=== PATIENT | female | born 1945 | race Caucasian/White ===

== ENCOUNTER 2016-06-14 10:00 | Inpatient (IN) | payer MEDICARE ==
[2016-06-14] VITALS (21 sets, daily range): BP systolic 127–160; BP diastolic 68–101
[~2016-06-14] VITALS: Ht 157.5 cm; Wt 75.9 kg
[~2016-06-14 10:00] MED LIST: ASPIRIN 81MG TA81 MG PO; HCTZ/LISINOPRIL1 TA3 PO; VENLAFAXINE HYD75 MG PO; VITAMIN B-12100 MCG PO; VITAMIN D1000 IU PO
[2016-06-14 10:16] LABS: HEMOGLOBIN 10.3 g/dL (12.2-16.2); LYMPH # 2.3 K/mm3 (0.7-4.5)
[2016-06-14 10:23] LABS: BUN 20 mg/dL (7-18); GFR (ESTIMATED) 62 ML/MIN (59-)
--- NOTE | 2016-06-14 10:57 | Emergency Room Report ---
History of Present Illness Time Seen by [id number] Presenting Problem in Triage Pt arrived: Presenting Problem: Onset of symptoms date/time:/ or onset unknown for: Treatment Prior to Arrival: [facility] Provided by: Sepsis Risk Assessment: Temp: B/P: MAP: Pulse: Resp: Recent fever? Clinical Suspician of Infection? Mental Status: Sepsis Risk: Have you (or family members/close friends) recently traveled outside the [place]? If Yes, where/when: Have you had exposure to infectious disease within the past month? TB? Other? Specify: 70 years old white female status post hysterectomy 7 years ago secondary to uterine cancer. She has intermittent episodes of vaginal bleeding, last episode was a year ago. The patient came with her was having a congestive heart failure exacerbation was placed on BiPAP and she started gushing out of her vagina. She states that he has been going on for some time as she is changing 1 pad a day. There have been similar episodes in the last one was a year ago. Source patient, RN notes reviewed, family Exam Limitations clinical condition ALLERGIES Coded Allergies: No Known Allergies (06/14/16) Home Medications Reported Medications ASPIRIN (Aspirin) 81 MG PO DAILY VENLAFAXINE HCL (Venlafaxine Hydrochloride) 75 MG PO DAILY LISINOPRIL/HYDROCHLOROTHIAZIDE (Lisinopril-Hctz 20-12.5 MG Tab) 1 TAB PO DAILY CHOLECALCIFEROL (VITAMIN D3) (Vitamin D3) 4,000 IUNITS PO DAILY CYANOCOBALAMIN (VITAMIN B-12) (Vitamin B-12) 100 MCG PO DAILY History Medical History General Angina: No MO: No Hypertension? Yes Hyperlipidemia? No CHF? No COPD? No Asthma? No Hernia? No CVA? No Seizures? No Diabetes? No UTI? No Stones? No GB Disease: No Hepatitis? No Cataracts? No Glaucoma? No MRSA? No TB? No Cancer? Yes Site: endometrial carcinoma Immunization Hx DT/Tetanus > 10 YRS Flu 2YRSorMore Pneumonia NEVER Surgical Hx Previous Surgery?Y TUBAL LIGATION Family History Family Hx Diabetes No CAD Yes Hypertension Yes Hyperlipidemia No Cancer No TB No Social History Alcohol Alcohol: No Review of Systems All Other Systems Reviewed and Negative Constitutional no symptoms reported Eyes no symptoms reported ENT no symptoms reported. Respiratory no symptoms reported Cardiovascular no symptoms reported Gastrointestinal no symptoms reported Genitourinary see HPI. Musculoskeletal no symptoms reported Skin no symptoms reported Psychiatric/Neurological anxiety Physical Exam Vital Signs Vital Signs Date Time Temp Pulse Resp B/P Pulse O2 O2 Flow FiO2 Ox Delivery Rate 06/14 1000 98.0 81 18 157/90 97 - WBC >12,000 or <4,000 or 10% bands? 2 or more SIRS Criteria Met? B/P: MAP: Creatinine >2.0? UA output<0.5ml/kg/hr for 2 hrs? Platelet count >100,000? Lactate >2.0mmol/1? INR >1.2 or PTT > than 60 sec? Evidence of Organ Dysfunction? Provider documented clinical suspician of infection? Sepsis Criteria Count: Sepsis Risk: General Appearance normal appearance, WD/WN Eye Exam - bilateral eye normal exam, bilateral eye PERRL, bilateral eye EOMI Ear, Nose, Throat hearing grossly normal, normal ENT inspection Neck normal inspection, non-tender, supple, full range of motion Respiratory Status Yes: trachea midline, chest symmetrical, non tender chest. No: respiratory distress. Lung Sounds bilateral: normal breath sounds, lungs clear. Cardiovascular normal exam, regular rate/rhythm, no peripheral edema, no gallop, no JVD, no murmur, no rub, normal peripheral pulses Peripheral Pulses Pulses normal Yes Gastrointestinal normal bowel sounds, normal exam, non tender, soft, no organomegaly Extremities non-tender, normal range of motion, normal inspection Neurologic alert, ordnance handler II-XII nml as tested, normal exam, oriented x 3 Skin intact, normal color, warm/dry Medical Decision Making LABS/Meds/Orders Pt receiving controlled substance in ED? No Results/Orders Laboratory Tests 06/14/16 1054: Alcohols 2 06/14/16 1000: Sodium 137, Potassium 3.9, Chloride 101, Carbon Dioxide 24, BUN 20 H, Creatinine 0.9, Estimated GFR (MDRD) 62, Glucose 148 H, Calcium 9.1, Total Bilirubin 0.4, AST 16, ALT 16, Alkaline Phosphatase 83, Total Protein 8.2, Albumin 3.7, Globulin 4.5 H, Albumin/Globulin Ratio 0.8 L, WBC 9.1, RBC 4.17 L, Hgb 10.3 L, Hct 34.1 L, MCV 81.9 L, RDW 14.7, Plt Count 302, MPV 5.6 L, Gran % 67.6, Gran # 6.1, Lymphocytes % 25.0, Monocytes % 5.8, Eosinophils % 1.3, Basophils % 0.4, Lymphocytes # 2.3, Monocytes # 0.5, Eosinophils # 0.1, Basophils # 0.0, PUBS MCHC 30.3 L, MCH 24.8 L Current Medication Orders Sig/Kayla Start time Last Medication Dose Route Stop Time Status Admin Haloperidol Lactate 0 .STK-MED ONE 06/14 1147 DC .ROUTE Lorazepam 1 MG ONCE ONE 06/14 1145 DC IV 06/14 1146 Lorazepam 0 .STK-MED ONE 06/14 1134 DC .ROUTE Sodium Chloride 1,000 ML .STK-MED ONE 06/14 1053 DC IV Sodium Chloride 10 ML PRN PRN 06/14 1015 AC IV 06/15 1001 Sodium Chloride 1,000 ML .STK-MED ONE 06/14 1004 DC IV Orders Procedure Date/time Status DIET-NOTHING BY MOUTH 06/14 L Active TYPE AND SCREEN 06/[address] HEAD REQ 06/14 1049 Active DRUG ABUSE SCREEN (10) 06/14 1049 Active AMMONIA 06/14 1049 Active ALCOHOL 06/14 1049 Complete IV SALINE LOCK 06/14 1001 Active CBC WITH AUTO DIFF 06/14 1001 Complete CHEM 12 PROFILE 06/14 1001 Complete Departure Departure Time of Disposition 1053 Disposition Still a Patient Clinical Impression Primary Impression: Vaginal bleeding Secondary Impressions: Psychosis Condition STABLE Referrals Reji COREAS,Daren (Family) Additional Instructions I placed the patient in the lithotomy position for examination, she became is very agitated, could not tolerate touching her, became more anxious exam was stopped. Patient was alert and oriented to place and person and date. She was needing assistance to realize what her daughters are. I order a stat head CT scan ammonia level and a urine drug screen. In the meanwhile her was doing much better on BiPAP. I called Dr. Whelan WHO agreed that the patient is not medically cleared and she did CONSULT.. I CALLED DR ARGUELLES WHO AGREED TO SEE HER INPATIENT CONSULT. Discharge Counseling Counseled pt/family regarding diagnosis, test results, medications/RX ED Critical Care Critical Care Yes Time spent 30-74 min Vital system(s) involved: PSYCHOSIS AND VAGINAL BLEEDING I was present at bedside for Coordinating pt's care, Interpreting EKGs/Strips , During my initial exam, Reviewing lab results, Reviewing old records, Discussing pt condition at 1202
--- NOTE | 2016-06-14 11:31 | RADIOLOGY REPORT PS360 ---
CT HEAD W/O CONTRAST HISTORY: CONFUSION ORDERING PHYSICIAN: Mary Grace Easley MD PATIENT AGE: 70 years COMPARISON: None 06/23/2008 TECHNIQUE: Axial images obtained without contrast. Brain and bone windows reviewed. FINDINGS: There is performed by helical technique with somewhat limited resolution compared to the normal technique. No midline shift, mass effect, intracranial hemorrhage, or hydrocephalus is evident. 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 Nonspecific decreased attenuation is present in the periventricular region consistent with ischemic gliotic change from microvascular disease. No midline shift, mass effect, intracranial hemorrhage, or hydrocephalus is evident. There is mucosal thickening of left maxillary sinus. No acute calvarial abnormalities are evident. IMPRESSION: 1. No acute intracranial pathology. 2. Atrophy with chronic ischemic changes.
--- NOTE | 2016-06-14 13:57 | HISTORY AND PHYSICAL REPORT ---
History and Physical ([facility]) Date of admission: 06/14/16 Chief complaint: AMS, bleeding from vagina History: History of Present Illness: Ms. Guthrie is a 70yo female who was just recently at [facility] yesterday for a wellness exam. She was doing well until today when her was brought to the ER d/t CP. He had to be placed on BIPAP. The patient's family states she got very nervous and began having bleeding from her vagina while they were in the ER and then felt like she was going to pass out. Her family states she had some AMS and was unsure who they were. She does have a hx of endometrial cancer and has had a hysterectomy. She was given haldol and lorazepam to try to calm her down. The ER physician tried to do a pelvic exam, but the patient was too upset. Her HGB was 10.3 initially. She was admitted for observation, a repeat H & H, and a TWISTER OPERATOR consult. She did have a CT of her head that was normal. Past Medical History: Medical History: CAD? No Angina: No [place]: No Hypertension? Yes Hyperlipidemia? No CHF? No DVT? No PE? No COPD? No Asthma? No Anemia? Yes GERD? No Gastric ulcers? No GI Bleed? No Hernia? No Thyroid Problems? No Hypothyroidism? No CVA? No Seizures? No Diabetes? No Renal Insuffiency? No UTI? No Stones? No GB Disease: No Hepatitis? No Cataracts? No Glaucoma? No MRSA? No TB? No Anxiety? Yes Depression? Yes Cancer? Yes Site: endometrial carcinoma More? No Surgical history: Previous Surgery?Y TUBAL LIGATION [facility] Medications: Reported Medications ASPIRIN (Aspirin) 81 MG PO DAILY VENLAFAXINE HCL (Venlafaxine Hydrochloride) 75 MG PO DAILY LISINOPRIL/HYDROCHLOROTHIAZIDE (Lisinopril-Hctz 20-12.5 MG Tab) 1 TAB PO DAILY CHOLECALCIFEROL (VITAMIN D3) (Vitamin D3) 4,000 IUNITS PO DAILY CYANOCOBALAMIN (VITAMIN B-12) (Vitamin B-12) 100 MCG PO DAILY Allergies: Coded Allergies: homatropine (From HYCODAN (WITH HOMATROPIN)) (06/14/16) hydrocodone (From HYCODAN (WITH HOMATROPIN)) (06/14/16) Family History: Family history: Postive for: HTN. Negative for: CAD, cancer, stroke. Social History: Smoking Hx Tobacco: No Smoker: Never Smoker Type: N/A Packs/day: N/A Are you exposed to second hand No Alcohol: Alcohol: No Hx of Drug Use: Drug Use? No Review of Systems: Constitutional Positive for: fatigue, lethargy, malaise, weak. ENT No: nasal congestion, sore throat. Cardiovascular No: chest pain, edema, palpitations. Respiratory No: shortness of air, productive cough (sputum), wheezing. GI No: abdominal pain, diarrhea, nausea, vomitting. (female) Positive for: hematuria, vaginal discharge (bloody). No: frequency. Neurological Positive for: weakness. No: dizziness, headache, syncope. Musculoskeletal No: extremity pain, joint pain, myalgias. Physical Exam: Vital signs: 1ST Vital Signs Result Date Time Pulse Ox 97 06/14 1000 B/P 157/90 06/14 1000 Temp 98.0 06/14 1000 Pulse 81 06/14 1000 Resp 18 06/14 1000 O2 Delivery ROOM AIR 06/14 1248 Exam: General appearance: alert, awake, no acute distress Eyes: EOM's w/normal ROM, PERRLA ENT: mucous membranes moist, nose normal, pharynx normal, tympanic membranes normal Neck: non-tender, no carotid bruit, full range of motion, supple Cardiovascular: regular rate & rhythm Respiratory: clear to auscultation ABD: non-distended, normal bowel sounds, no rebound, soft, no tenderness, no guarding Extremities: no peripheral edema Musculoskeletal: equal muscle strength, motor intact, sensation intact Skin: pale Neuro: normal mood/affect, oriented, speech clear Lab data: Labs: Laboratory Tests 06/14/16 1325: Ammonia 16 L, Hgb 8.7 L 06/14/16 1054: Alcohols 2 06/14/16 1000: Sodium 137, Potassium 3.9, Chloride 101, Carbon Dioxide 24, BUN 20 H, Creatinine 0.9, Estimated GFR (MDRD) 62, Glucose 148 H, Calcium 9.1, Total Bilirubin 0.4, AST 16, ALT 16, Alkaline Phosphatase 83, Total Protein 8.2, Albumin 3.7, Globulin 4.5 H, Albumin/Globulin Ratio 0.8 L, WBC 9.1, RBC 4.17 L, Hgb 10.3 L, Hct 34.1 L, MCV 81.9 L, RDW 14.7, Plt Count 302, MPV 5.6 L, Gran % 67.6, Gran # 6.1, Lymphocytes % 25.0, Monocytes % 5.8, Eosinophils % 1.3, Basophils % 0.4, Lymphocytes # 2.3, Monocytes # 0.5, Eosinophils # 0.1, Basophils # 0.0, PUBS MCHC 30.3 L, MCH 24.8 L Radiology results: Results: CT head - nothing acute Diagnosis(es): 1. Vaginal bleeding Status: Acute 2. Anemia Status: Acute 3. Anxiety Status: Chronic 4. Hypertension Status: Chronic 5. History of endometrial cancer Status: Chronic Plan: Dr. Jain has been consulted. The patient's H & H has dropped significantly. Will go ahead and transfuse with 2 units of PRBC's and await his recommendation. (Gita Houser) Diagnosis(es): 1. Vaginal bleeding Status: Acute 2. Anemia Status: Acute 3. Anxiety Status: Chronic 4. Hypertension Status: Chronic 5. History of endometrial cancer Status: Chronic Plan: Patient seen and agree with above note. (Daren Mendoza MD) at 1432 at 1748
--- NOTE | 2016-06-14 13:57 | HISTORY AND PHYSICAL REPORT ---
History and Physical ([facility]) Date of admission: 06/14/16 Chief complaint: AMS, bleeding from vagina History: History of Present Illness: Ms. Guthrie is a 70yo female who was just recently at [facility] yesterday for a wellness exam. She was doing well until today when her was brought to the ER d/t CP. He had to be placed on BIPAP. The patient's family states she got very nervous and began having bleeding from her vagina while they were in the ER and then felt like she was going to pass out. Her family states she had some AMS and was unsure who they were. She does have a hx of endometrial cancer and has had a hysterectomy. She was given haldol and lorazepam to try to calm her down. The ER physician tried to do a pelvic exam, but the patient was too upset. Her HGB was 10.3 initially. She was admitted for observation, a repeat H & H, and a DUCK OPERATOR consult. She did have a CT of her head that was normal. Past Medical History: Medical History: CAD? No Angina: No MS: No Hypertension? Yes Hyperlipidemia? No CHF? No DVT? No PE? No COPD? No Asthma? No Anemia? Yes GERD? No Gastric ulcers? No GI Bleed? No Hernia? No Thyroid Problems? No Hypothyroidism? No CVA? No Seizures? No Diabetes? No Renal Insuffiency? No UTI? No Stones? No GB Disease: No Hepatitis? No Cataracts? No Glaucoma? No MRSA? No TB? No Anxiety? Yes Depression? Yes Cancer? Yes Site: endometrial carcinoma More? No Surgical history: Previous Surgery?Y TUBAL LIGATION [facility] Medications: Reported Medications ASPIRIN (Aspirin) 81 MG PO DAILY VENLAFAXINE HCL (Venlafaxine Hydrochloride) 75 MG PO DAILY LISINOPRIL/HYDROCHLOROTHIAZIDE (Lisinopril-Hctz 20-12.5 MG Tab) 1 TAB PO DAILY CHOLECALCIFEROL (VITAMIN D3) (Vitamin D3) 4,000 IUNITS PO DAILY CYANOCOBALAMIN (VITAMIN B-12) (Vitamin B-12) 100 MCG PO DAILY Allergies: Coded Allergies: homatropine (From HYCODAN (WITH HOMATROPIN)) (06/14/16) hydrocodone (From HYCODAN (WITH HOMATROPIN)) (06/14/16) Family History: Family history: Postive for: HTN. Negative for: CAD, cancer, stroke. Social History: Smoking Hx Tobacco: No Smoker: Never Smoker Type: N/A Packs/day: N/A Are you exposed to second hand No Alcohol: Alcohol: No Hx of Drug Use: Drug Use? No Review of Systems: Constitutional Positive for: fatigue, lethargy, malaise, weak. ENT No: nasal congestion, sore throat. Cardiovascular No: chest pain, edema, palpitations. Respiratory No: shortness of air, productive cough (sputum), wheezing. GI No: abdominal pain, diarrhea, nausea, vomitting. (female) Positive for: hematuria, vaginal discharge (bloody). No: frequency. Neurological Positive for: weakness. No: dizziness, headache, syncope. Musculoskeletal No: extremity pain, joint pain, myalgias. Physical Exam: Vital signs: 1ST Vital Signs Result Date Time Pulse Ox 97 06/14 1000 B/P 157/90 06/14 1000 Temp 98.0 06/14 1000 Pulse 81 06/14 1000 Resp 18 06/14 1000 O2 Delivery ROOM AIR 06/14 1248 Exam: General appearance: alert, awake, no acute distress Eyes: EOM's w/normal ROM, PERRLA ENT: mucous membranes moist, nose normal, pharynx normal, tympanic membranes normal Neck: non-tender, no carotid bruit, full range of motion, supple Cardiovascular: regular rate & rhythm Respiratory: clear to auscultation ABD: non-distended, normal bowel sounds, no rebound, soft, no tenderness, no guarding Extremities: no peripheral edema Musculoskeletal: equal muscle strength, motor intact, sensation intact Skin: pale Neuro: normal mood/affect, oriented, speech clear Lab data: Labs: Laboratory Tests 06/14/16 1325: Ammonia 16 L, Hgb 8.7 L 06/14/16 1054: Alcohols 2 06/14/16 1000: Sodium 137, Potassium 3.9, Chloride 101, Carbon Dioxide 24, BUN 20 H, Creatinine 0.9, Estimated GFR (MDRD) 62, Glucose 148 H, Calcium 9.1, Total Bilirubin 0.4, AST 16, ALT 16, Alkaline Phosphatase 83, Total Protein 8.2, Albumin 3.7, Globulin 4.5 H, Albumin/Globulin Ratio 0.8 L, WBC 9.1, RBC 4.17 L, Hgb 10.3 L, Hct 34.1 L, MCV 81.9 L, RDW 14.7, Plt Count 302, MPV 5.6 L, Gran % 67.6, Gran # 6.1, Lymphocytes % 25.0, Monocytes % 5.8, Eosinophils % 1.3, Basophils % 0.4, Lymphocytes # 2.3, Monocytes # 0.5, Eosinophils # 0.1, Basophils # 0.0, PUBS MCHC 30.3 L, MCH 24.8 L Radiology results: Results: CT head - nothing acute Diagnosis(es): 1. Vaginal bleeding Status: Acute 2. Anemia Status: Acute 3. Anxiety Status: Chronic 4. Hypertension Status: Chronic 5. History of endometrial cancer Status: Chronic Plan: Dr. Jain has been consulted. The patient's H & H has dropped significantly. Will go ahead and transfuse with 2 units of PRBC's and await his recommendation. (Gita Houser) Diagnosis(es): 1. Vaginal bleeding Status: Acute 2. Anemia Status: Acute 3. Anxiety Status: Chronic 4. Hypertension Status: Chronic 5. History of endometrial cancer Status: Chronic Plan: Patient seen and agree with above note. (Daren Mendoza MD) at 1432 at 1742
[2016-06-14 14:20] LABS: ABO BLOOD TYPE A; RH BLOOD TYPE POSITIVE
[2016-06-14 14:36] LABS: AMPHETAMINES/METAMPHETAMINES NEGATIVE ng/mL (<1000)
[2016-06-14 15:08] LABS: ANTIHUMAN GLOB CROSSMATCH COMPAT
[2016-06-14 15:09] LABS: ANTIHUMAN GLOB CROSSMATCH COMPAT
--- OUTSIDE RECORDS SUMMARY | 2016-06-14 15:54 | External Medical Summary Rpt ---
Demographics Preferred Language Bur[place]ian Marital Status Unknown Advent Affiliation Unknown Race Unknown Ethnic Group Unknown Author Author , Organization [employer] Address Unknown Phone Unavailable Purpose Continuity of Care Document - through 2016 Immunization No patient found.
--- OUTSIDE RECORDS SUMMARY | 2016-06-14 15:54 | External Medical Summary Rpt ---
Author Author [employer] Organization [employer] Address Unknown Phone Unavailable Purpose Continuity of Care Document - through 2016
--- OUTSIDE RECORDS SUMMARY | 2016-06-14 15:54 | External Medical Summary Rpt ---
Author Author , Organization [employer] Address Unknown Phone Unavailable Purpose Continuity of Care Document - through 2016 Problems Code Diagnosis DOS Provider Status F29 UNSP PSYCHOSIS NOT DUE TO A SUBSTANCE OR KNOWN PHYSIOL COND N93.9 ABNORMAL UTERINE AND VAGINAL BLEEDING, UNSPECIFIED
--- OUTSIDE RECORDS SUMMARY | 2016-06-14 15:54 | External Medical Summary Rpt ---
Demographics Preferred Language Brazilian Marital Status Unknown Muslim Affiliation Unknown Race Unknown Ethnic Group Unknown Author Author , Organization [employer] Address Unknown Phone Unavailable Purpose Continuity of Care Document - through 2016 Immunization No patient found.
[2016-06-14 22:26] LABS: HEMOGLOBIN 10.5 g/dL (12.2-16.2)
[2016-06-15] VITALS (7 sets, daily range): BP systolic 107–138; BP diastolic 57–86
[2016-06-15 06:28] LABS: HEMOGLOBIN 9.9 g/dL (12.2-16.2)
--- NOTE | 2016-06-15 07:27 | PHARMACY CLINIC NOTE ---
Patient Demographics Patient Demographics Admission date: 06/14/16 Date: 06/15/16 Time: 07 Allergies Coded Allergies: homatropine (From HYCODAN (WITH HOMATROPIN)) (06/14/16) hydrocodone (From HYCODAN (WITH HOMATROPIN)) (06/14/16) HEIGHT- FT: 5 IN: 2.00 K.864 VTE General Information Labs: Laboratory Tests 06/15 06/14 06/14 06/14 0605 2156 1325 1000 Hematology Hgb (12.2 - 16.2 g/dL) 9.9 L 10.5 L 8.7 L 10.3 L Hct (37.0 - 47.0 %) 31.5 L 33.7 L 34.1 L Plt Count (142 - 424 K/mm3) 302 Disclaimer The following section includes nursing documentation that has been pulled in for pharmacy review. Patient's VTE score: 1 Patient's VTE Risk: VERY LOW RISK Clinical trial participant? No VTE prophylaxis NQF [id number] VTE prophylaxis ordered? Yes Type of prophylaxis/treatment: JOSE C at 0726
--- NOTE | 2016-06-15 08:58 | ACUTE CARE PROGRESS NOTE ([facility]) ---
Progress Notes Subjective Date 06/15/16 Time 0856 Note Pt states she feels much better this am after getting blood. Her vaginal bleeding has slowed but still continues. Dr. Jain saw the patient yesterday and she has a very large pelvic mass. She had a CT last night and we are awaiting results. She denies any pain at this time and states she is able to rest better this am. Objective Findings Last VS-Temp:98.8 B/P:123/76 Pulse:92 Resp:18 SaO2:97 OXYGEN Last weight lbs:167 oz:4 K.864 Method:Bed Scales Laboratory Tests 06/15/16 0605: Hgb 9.9 L, Hct 31.5 L 06/14/16 2156: Hgb 10.5 L, Hct 33.7 L 06/14/16 1855: Misc Test Units BLOOD UNIT RELEASE 06/14/16 1531: Misc Test Units BLOOD UNIT RELEASE 06/14/16 1400: Opiates Screen NEGATIVE, Urine Methadone Screen NEGATIVE, Barbiturates NEGATIVE, Phencyclidine Screen NEGATIVE, Amphetamines Screen NEGATIVE, Benzodiazepines Screen NEGATIVE, Cocaine Screen NEGATIVE, Marijuana (THC) Screen NEGATIVE 06/14/16 1325: Ammonia 16 L, Hgb 8.7 L, Antibody Screen NEGATIVE, Miscellaneous Test POSITIVE 06/14/16 1054: Alcohols 2 06/14/16 1000: Sodium 137, Potassium 3.9, Chloride 101, Carbon Dioxide 24, BUN 20 H, Creatinine 0.9, Estimated GFR (MDRD) 62, Glucose 148 H, Calcium 9.1, Total Bilirubin 0.4, AST 16, ALT 16, Alkaline Phosphatase 83, Total Protein 8.2, Albumin 3.7, Globulin 4.5 H, Albumin/Globulin Ratio 0.8 L, WBC 9.1, RBC 4.17 L, Hgb 10.3 L, Hct 34.1 L, MCV 81.9 L, RDW 14.7, Plt Count 302, MPV 5.6 L, Gran % 67.6, Gran # 6.1, Lymphocytes % 25.0, Monocytes % 5.8, Eosinophils % 1.3, Basophils % 0.4, Lymphocytes # 2.3, Monocytes # 0.5, Eosinophils # 0.1, Basophils # 0.0, PUBS MCHC 30.3 L, MCH 24.8 L Exam General appearance: alert, awake, no acute distress Cardiovascular: regular rate & rhythm Respiratory: clear to auscultation ABD: non-distended, normal bowel sounds, no rebound, soft, no tenderness, no guarding, hernia present Genitourinary: sanitary pad and ice pack in place Extremities: no peripheral edema Assessment/Plan Problem List 1. Vaginal bleeding Status: Acute 2. Pelvic mass Status: Acute 3. Anemia Status: Acute 4. Anxiety Status: Chronic 5. Hypertension Status: Chronic 6. History of endometrial cancer Status: Chronic Plan: Will await CT report. Will restart some of her home meds. This inpt stay is expected to cross 2 MNs from start of care Yes (Gita Houser) Assessment/Plan Problem List 1. Vaginal bleeding Status: Acute 2. Pelvic mass Status: Acute 3. Anemia Status: Acute 4. Anxiety Status: Chronic 5. Hypertension Status: Chronic 6. History of endometrial cancer Status: Chronic Comments: Patient seen and agree with above note. She seems to feel better today, still awaiting CT scan report. (Daren Mendoza MD) at 0858 at 0907
--- NOTE | 2016-06-15 09:03 | ACUTE CARE PROGRESS NOTE (QUA) ---
Progress Notes Subjective Date 06/15/16 Time 0901 Note She says that she is feeling much better this morning. Her pain is reasonably well-controlled. She has received 2 it's of blood and her hemoglobin is 9.9 this morning. Her color is much better. She seems to be voiding well although she has increased frequency likely as result of the tumor pressing on her bladder. Patient/family reports: feeling better, no complaints Objective Findings Last VS-Temp:98.8 B/P:123/76 Pulse:92 Resp:18 SaO2:97 OXYGEN Last weight lbs:167 oz:4 K.864 Method:Bed Scales Laboratory Tests 06/15/16 0605: Hgb 9.9 L, Hct 31.5 L 06/14/16 2156: Hgb 10.5 L, Hct 33.7 L 06/14/16 1855: Misc Test Units BLOOD UNIT RELEASE 06/14/16 1531: Misc Test Units BLOOD UNIT RELEASE 06/14/16 1400: Opiates Screen NEGATIVE, Urine Methadone Screen NEGATIVE, Barbiturates NEGATIVE, Phencyclidine Screen NEGATIVE, Amphetamines Screen NEGATIVE, Benzodiazepines Screen NEGATIVE, Cocaine Screen NEGATIVE, Marijuana (THC) Screen NEGATIVE 06/14/16 1325: Ammonia 16 L, Hgb 8.7 L, Antibody Screen NEGATIVE, Miscellaneous Test POSITIVE 06/14/16 1054: Alcohols 2 06/14/16 1000: Sodium 137, Potassium 3.9, Chloride 101, Carbon Dioxide 24, BUN 20 H, Creatinine 0.9, Estimated GFR (MDRD) 62, Glucose 148 H, Calcium 9.1, Total Bilirubin 0.4, AST 16, ALT 16, Alkaline Phosphatase 83, Total Protein 8.2, Albumin 3.7, Globulin 4.5 H, Albumin/Globulin Ratio 0.8 L, WBC 9.1, RBC 4.17 L, Hgb 10.3 L, Hct 34.1 L, MCV 81.9 L, RDW 14.7, Plt Count 302, MPV 5.6 L, Gran % 67.6, Gran # 6.1, Lymphocytes % 25.0, Monocytes % 5.8, Eosinophils % 1.3, Basophils % 0.4, Lymphocytes # 2.3, Monocytes # 0.5, Eosinophils # 0.1, Basophils # 0.0, PUBS MCHC 30.3 L, MCH 24.8 L Exam General appearance: normal appearance, alert, awake, no acute distress Reviewed: vital signs, lab results Assessment/Plan Problem List 1. Vaginal bleeding Status: Acute 2. Pelvic mass Status: Acute 3. Anemia Status: Acute 4. Anxiety Status: Chronic 5. Hypertension Status: Chronic 6. History of endometrial cancer Status: Chronic Patient condition Stable, Guarded Plan: continue current care This inpt stay is expected to cross 2 MNs from start of care Yes Comments: We will plan to review her CT scan this morning. We will then determine the next best course of treatment. at 0903
--- NOTE | 2016-06-15 09:43 | RADIOLOGY REPORT PS360 ---
CT ABD PELVIS W/WO CONTRAST INDICATION: LARGE LEFT SIDED PELVIC SIDEWALL MASS, diffuse vaginal bleeding ORDERING PHYSICIAN: Daren Mendoza MD PATIENT AGE: 70 years COMPARISON: None TECHNIQUE: Axial images are obtained without and with contrast. Sagittal and coronal reformatted images are reviewed as well. FINDINGS: Lung base images show several pulmonary masses in both lower lobes. The largest is in the left lower lobe measuring 3 x 2.3 cm. Several these masses contain gas. Consider dedicated CT chest for more thorough evaluation. There are at least 5 nodules in the right lower lung zone and one nodule in the left lower lung zone. The largest nodule on the right is 2.6 cm and is in the right middle lobe. The liver has an unremarkable appearance. Laminated partially calcified gallstone is present measuring 3 cm. No biliary dilatation. No space-occupying lesions of the liver. The spleen, pancreas, and adrenal glands are unremarkable. No obstructing renal or ureteral calculi are evident. There is mild prominence of the pelvicalyceal system and ureters on both sides. The urinary bladder is distended. No intestinal obstruction or free air is evident. There is a prominent left periumbilical hernia measuring 5 cm in width and contains a loop of large bowel. No bowel obstruction evident. There has been prior hysterectomy. There is a large pelvic mass at the perineal region which is epicentered to the left of the vagina at the perineal region and along the anterior and left lateral aspect of the rectum and the inferior and left aspect of the urinary bladder.. The mass is inseparable from the left lateral aspect of the vagina and the anterior and left lateral wall of the rectum. This mass measures 8.2 cm cephalad to caudad, 6.5 cm transverse, and 7 cm AP. The mass is posterior to the symphysis pubis and posterior to the inferior pubic rami on both sides. This mass may be causing urinary bladder outlet obstruction with compression upon the urethra. No pelvic adenopathy is evident. No bony lytic or blastic lesions. There is old mild wedging of L1 with degenerative changes in the thoracic and lumbar spine IMPRESSION: 1. Large perineal mass as described above. 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 The mass is inseparable from the anterior left aspect of the rectum and the inferior and left posterior aspect of the urinary bladder. There is urinary bladder distention likely due to bladder outlet obstruction from urethral compression. There is mild bilateral dilatation of the renal collecting system. 2. Multiple cavitating pulmonary lesions which may be related metastatic foci. An infective process is also a consideration such as septic emboli. Fungal infection not excluded.. 3. Left keyla-Umbilical hernia containing a loop of large bowel without obstruction
[2016-06-16 06:49] VITALS: BP 118/60
[2016-06-16 07:12] LABS: HEMOGLOBIN 9.2 g/dL (12.2-16.2); LYMPH # 1.1 K/mm3 (0.7-4.5); LYMPH % 15.3 % (10-50.0)
[2016-06-16 08:00] VITALS: BP 121/60
[2016-06-16 08:05] VITALS: BP 121/60
--- NOTE | 2016-06-16 08:21 | ACUTE CARE PROGRESS NOTE (QUA) ---
Progress Notes Subjective Date 06/16/16 Time 0820 Note She seems to be doing a little better this morning. She is feeling better. She had a catheter inserted overnight and she had 1200 mL of urine that she was unable to empty. She says she's feeling better. Patient/family reports: feeling better, no complaints Objective Findings Last VS-Temp:98.3 B/P:121/60 Pulse:81 Resp:18 SaO2:95 OXYGEN Last weight lbs:167 oz:4 K.864 Method:Bed Scales Exam General appearance: normal appearance, alert, awake, no acute distress Reviewed: vital signs, lab results Assessment/Plan Problem List 1. Vaginal bleeding Status: Acute 2. Pelvic mass Status: Acute 3. Anemia Status: Acute 4. Anxiety Status: Chronic 5. Hypertension Status: Chronic 6. History of endometrial cancer Status: Chronic Patient condition Stable Plan: continue current care, initiate discharge plan This inpt stay is expected to cross 2 MNs from start of care Yes Comments: She is doing better this morning. I have suggested that she goes home with a catheter and leg bag. She should have Macrobid daily as well as prophylaxis for a urinary tract infection. at 0821
--- NOTE | 2016-06-16 08:44 | ACUTE CARE PROGRESS NOTE (QUA) ---
Progress Notes Subjective Date 06/16/16 Time 0839 Note Pt states she feels much better today. She slept well and is eating well. She had a catheter inserted last night and good UOP. She feels much better now and has no pain. Vaginal bleeding is much less. Objective Findings Last VS-Temp:98.3 B/P:121/60 Pulse:81 Resp:18 SaO2:95 OXYGEN Last weight lbs:167 oz:4 K.864 Method:Bed Scales Laboratory Tests 06/16/16 0630: Sodium 136, Potassium 4.3, Chloride 105, Carbon Dioxide 26, BUN 11, Creatinine 1.0, Estimated Creat Clear 64, Estimated GFR (MDRD) 55 L, Glucose 128 H, Calcium 8.4 L, WBC 6.9, RBC 3.62 L, Hgb 9.2 L, Hct 30.0 L, MCV 82.9, RDW 15.0, Plt Count 193, MPV 5.8 L, Gran % 74.5, Gran # 5.2, Lymphocytes % 15.3, Monocytes % 7.1, Eosinophils % 2.7, Basophils % 0.4, Lymphocytes # 1.1, Monocytes # 0.5, Eosinophils # 0.2, Basophils # 0.0, PUBS MCHC 30.5 L, MCH 25.[address] abd/pelvis 1. Large perineal mass as described above. 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 The mass is inseparable from the anterior left aspect of the rectum and the inferior and left posterior aspect of the urinary bladder. There is urinary bladder distention likely due to bladder outlet obstruction from urethral compression. There is mild bilateral dilatation of the renal collecting system. 2. Multiple cavitating pulmonary lesions which may be related metastatic foci. An infective process is also a consideration such as septic emboli. Fungal infection not excluded. 3. Left keyla-Umbilical hernia containing a loop of large bowel without obstruction Exam General appearance: alert, awake Cardiovascular: regular rate & rhythm Respiratory: clear to auscultation ABD: non-distended, normal bowel sounds, no rebound, soft, no tenderness, no guarding, hernia present Extremities: no peripheral edema Skin: pale Assessment/Plan Problem List 1. Vaginal bleeding Status: Acute 2. Pelvic mass Status: Acute 3. Anemia Status: Acute 4. Anxiety Status: Chronic 5. Hypertension Status: Chronic 6. History of endometrial cancer Status: Chronic Plan: Dr. Jain's note reviewed. Possible discharge home with catheter. She will see [employer] [facility] on Sunday. This inpt stay is expected to cross 2 MNs from start of care No (Gita Houser) Assessment/Plan Problem List 1. Vaginal bleeding Status: Acute 2. Pelvic mass Status: Acute 3. Anemia Status: Acute 4. Anxiety Status: Chronic 5. Hypertension Status: Chronic 6. History of endometrial cancer Status: Chronic Comments: Patient seen and agree with above note. OK to discharge today, will need to check H/H next week and f/u in office in 2 weeks. (Daren Mendoza MD) at [phone] at 0911
[2016-06-16] MEDS ORDERED: HYDROXYZINE HCL25 M1 PO (09:14)
[2016-06-16] MEDS ORDERED: MACROBID100 M3 PO (09:14)
[2016-06-16] MEDS ORDERED: FERROUS GLUCON324 M1 PO (09:15)
[2016-06-16] MEDS ORDERED: ZOFRAN4 MG PO (09:15)
[2016-06-16 14:43] VITALS: BP 121/60
--- NOTE | 2016-06-22 08:46 | DISCHARGE SUMMARY STANDARD ---
Discharge Summary (FCA2) Date of admission: 06/14/16 Date of discharge: 06/16/16 Problem List: 1. Vaginal bleeding 2. Pelvic mass 3. Anemia 4. Anxiety 5. Hypertension 6. History of endometrial cancer History of present illness: Ms. Guthrie is a 70yo female who was just recently at [facility] for a wellness exam. She was doing well until the day of admission when her was brought to the ER d/t CP. He had to be placed on BIPAP. The patient's family stated she got very nervous and began having bleeding from her vagina while they were in the ER and then felt like she was going to pass out. Her family stated she had some AMS and was unsure who they were. She does have a hx of endometrial cancer and has had a hysterectomy. She was given haldol and lorazepam to try to calm her down. The ER physician tried to do a pelvic exam, but the patient was too upset. Her HGB was 10.3 initially. She was admitted for observation, a repeat H & H, and a [employer] consult. She did have a CT of her head that was normal. Exam on admission: General appearance: alert, awake, no acute distress Eyes: EOM's w/normal ROM, PERRLA ENT: mucous membranes moist, nose normal, pharynx normal, tympanic membranes normal Neck: non-tender, no carotid bruit, full range of motion, supple Cardiovascular: regular rate & rhythm Respiratory: clear to auscultation ABD: non-distended, normal bowel sounds, no rebound, soft, no tenderness, no guarding Extremities: no peripheral edema Musculoskeletal: equal muscle strength, motor intact, sensation intact Skin: pale Neuro: normal mood/affect, oriented, speech clear Hospital Course: The patient's H & H dropped to 8.7. She was transfused with 2 units of PRBC's. Her bleeding slowed and her H & H improved. Dr. Jain saw the patient, performed an exam, and found a very large pelvic mass. He ordered a CT which showed a large perineal mass that most likely represented a vaginal cancer. The mass was inseparable from the anterior left aspect of the rectum and the inferior and left posterior aspect of the urinary bladder. There was urinary bladder distention likely due to bladder outlet obstruction from urethral compression. There was mild bilateral dilatation of the renal collecting system. There were also multiple cavitating pulmonary lesions which may be related metastatic foci. She had a catheter inserted and had 1200 mL of urine that she was unable to empty. She felt much better after this. Dr. Jain suggested that she go home with a catheter and leg bag and take macrobid daily as prophylaxis for a urinary tract infection. An appt was made for her with [employer]/[facility]. Discharge medications: Continue taking these medications: ASPIRIN (Aspirin) 81 MG TAB.CHEW 81 MILLIGRAM ORAL DAILY VENLAFAXINE HCL (Venlafaxine Hydrochloride) 75 MG TABLET 75 MILLIGRAM ORAL DAILY LISINOPRIL/HYDROCHLOROTHIAZIDE (Lisinopril-Hctz 20-12.5 MG Tab) 1 EACH TABLET 1 TABLET ORAL DAILY CHOLECALCIFEROL (VITAMIN D3) (Vitamin D3) 1,000 UNIT TABLET 4,000 INT. UNITS ORAL DAILY CYANOCOBALAMIN (VITAMIN B-12) (Vitamin B-12) 100 MCG TABLET 100 MICROGRAM ORAL DAILY Start taking the following new medications: NITROFURANTOIN MONOHYD/M-CRYST (Macrobid 100 MG Capsule) 100 MG CAPSULE 100 MILLIGRAM ORAL TWICE A DAY Qty = 14 No Refills HYDROXYZINE HCL (Hydroxyzine HCl) 25 MG TABLET 25 MILLIGRAM ORAL THREE TIMES A DAY NEEDED as needed for ANXIETY Qty = 30 No Refills ONDANSETRON HCL (Zofran 4MG Tab) 4 MG TABLET 4 MILLIGRAM ORAL EVERY 6 HOURS NEEDED as needed for NAUSEA AND VOMITING Qty = 20 No Refills Ferrous Gluconate (Ferrous Gluconate) 324 MG TABLET 324 MILLIGRAM ORAL DAILY Qty = 30 Refills = 2 Disposition: F/U with: Daren Mendoza MD Follow up: 2 WEEKS Activity: Cont Current activity Diet: Continue same diet Discharge to: HOME Agency needed? N at 0846
== END 2016-06-16 14:43 | disposition home or self-care (01) | DRG 760 ==
LOC: ER 10:00 → 2ND 12:08 → OB 12:21 → 2ND 12:21 → OB 12:32
PROVIDERS: Emergency Medicine; Family Medicine
DX: N93.9 Abnormal uterine and vaginal bleeding, unspecified (principal); C79.9 Secondary malignant neoplasm of unspecified site; R19.00 Intra-abdominal and pelvic swelling, mass and lump, unspecified site; R91.8 Other nonspecific abnormal finding of lung field; Z85.42 Personal history of malignant neoplasm of other parts of uterus; C52 Malignant neoplasm of vagina
CPT/HCPCS: G6040; J2405; P9016; Q9967